=== PATIENT | female | born 1965 | race Caucasian/White ===

== ENCOUNTER 2020-02-15 02:20 | Outpatient (CLI) | payer OTHER, SELFPAY ==
[2020-02-15 17:23] LABS: SARS-CoV-2 RNA PCR Negative
== END 2020-02-15 02:21 | disposition home or self-care (01) ==
LOC: ANHCOVIDDT 02:22
PROVIDERS: Anesthesiology; Visit Provider Obstetrics & Gynecology Gynecology
DX: Z01.812 Encounter for preprocedural laboratory examination (principal); Z20.822 Contact with and (suspected) exposure to COVID-19
CPT/HCPCS: 80048; 93005; C9803; U0003

== ENCOUNTER 2020-02-15 07:44 | Outpatient (CLI) | payer OTHER, SELFPAY ==
--- NOTE | 2020-02-15 07:46 | ECG_ITS ---
Measurements Intervals [place] Rate: 62 P: 56 AR: 170 QRS: 44 QRSD: 89 T: 50 QT: 402 QTc: 408 Interpretive Statements SINUS RHYTHM BASELINE ARTIFACT- V5 NORMAL ECG Electronically Signed On 02-15-2020 8:01:47 MEDICAL OPERATIONS SUPERVISOR by Flex Melo D.O.
[2020-02-15 08:36] LABS: Anion Gap 8 mmol/L (8-16); Blood Urea Nitrogen 21 mg/dL (7-17); Calcium 9.2 mg/dL (8.4-10.2); Carbon Dioxide 29 mmol/L (22-30); Chloride 101 mmol/L (98-107); Estimated Glomerular Filt Rate > 60; Glucose 102 mg/dL (65-105); Potassium 4.2 mmol/L (3.4-5.0); Sodium 138 mmol/L (137-145)
== END 2020-02-15 07:45 | disposition home or self-care (01) ==
LOC: ANHSURGERY 07:46
PROVIDERS: Anesthesiology; PCP Family Medicine; Visit Provider Obstetrics & Gynecology Gynecology
DX: Z01.818 Encounter for other preprocedural examination (principal); E11.9 Type 2 diabetes mellitus without complications
CPT/HCPCS: 36415; 80048; 93005

== ENCOUNTER 2020-02-18 01:40 | Day surgery (SDC) | payer OTHER, SELFPAY ==
[2020-02-13 13:54] VITALS: BMI 26.5
[2020-02-18 06:01] VITALS: BP 121/77; PULSE 82; RESP 14; TEMP 36.7; O2SAT 100
[2020-02-18] MEDS: LACTATED RINGERS 1,000 ML 30 ML IV CONT (06:38)
[2020-02-18 06:44] LABS: Glucose Point of Care 111 (65-105)
--- NOTE | 2020-02-18 07:00 | WPDANESEPPF ---
Anes - Initial Pre Proc Eval Procedure: Operation Date: 02/18/20 08:30 Proposed Procedures p Hysteroscopy Dilation and Curettage - Garima Sal MD Date/Time: 02/18/20 07:00 Surgeon: Garima Sal MD Pre Op Diagnosis: Post Menopausal Bleeding Patient Data Age: 54 Gender: F Height: 5 ft 3 in Weight: 64 kg Last Vital Signs Temp 98.1 F 02/18/20 06:01 Pulse 82 02/18/20 06:01 Resp 14 02/18/20 06:01 BP 121/77 02/18/20 06:01 Pulse Ox 100 02/18/20 06:01 Allergies Allergy/AdvReac Type Severity Reaction Status Date / Time hydrocodone Allergy Intermediate Itching Verified 02/18/20 06:16 methocarbamol [From Robaxin] Allergy Intermediate Itching Verified 02/18/20 06:16 codeine AdvReac Mild Headache Verified 02/18/20 06:26 morphine AdvReac Mild Headache Verified 02/18/20 06:26 Home Medications Medication Instructions Recorded Confirmed Type carbidopa-levodopa 1 tablet PO DAILY 02/13/20 02/18/20 History fenofibrate 160 mg PO DAILY 02/13/20 02/18/20 History folic acid 1 mg PO DAILY 02/13/20 02/18/20 History gabapentin 600 mg PO BID 02/13/20 02/18/20 History levothyroxine [Synthroid] 100 mcg PO DAILY 02/13/20 02/18/20 History lorazepam 1 mg PO BID 02/13/20 02/18/20 History methotrexate sodium [Methotrexate 22.5 mg PO WEEKLY 02/13/20 02/18/20 History (Anti-Rheumatic)] nabumetone 500 mg PO BID 02/13/20 02/18/20 History propranolol 5 mg PO DAILY 02/13/20 02/18/20 History ropinirole 1 mg PO HS 02/13/20 02/18/20 History tramadol 50 mg PO BID 02/13/20 02/18/20 History Laboratory Tests 02/18/20 06:41 POC Capillary Glucose 111 mg/dl H mg/dl (65-105) Patient hx anesthesia problems: none Family hx anesthesia problems: none PMFSH Past Medical History Medical History (Updated 02/18/20 @ 07:00 by Demarco Lowry MD) Diabetes Hypothyroid Restless leg syndrome Social History Social History Smoking packs per day: 0.5 Smoking cigarettes per day: 10.0 Years smoked: 1 Smoking pack-years: 0.50 Smoking status: Current every day smoker Tobacco type: cigarettes Second hand tobacco smoke exposure: Yes Additional smoking assessment comments: NO IDEA HOW LONG SHE SMOKED OFF/ON PRIOR TO 1996, QUIT 1996, STARTED 04/2019 Drinks per week: 1 Substance use: never Living arrangements: with family Spiritual care concerns: No Anes - Eval Final PreProcedure Day of Procedure 02/18/20 07:00 Patient weight: normal Heart: regular rate and rhythm Lungs: clear to auscultation Airway: Mallampati scale class II Neurological: alert and oriented Last oral intake: >/= 8 hours ASA classification: III Emergent: no Anesthetic plan: proceed Anesthesia type and monitoring: general GIVS and standard monitoring Informed Consent: The patient's anesthetic plan and its attendant risks and benefits were discussed with the patient/family/POA. Questions were solicited and answers provided to the satisfaction of the patient/family/POA.
--- NOTE | 2020-02-18 07:32 | PM.HPGS ---
History of Present Illness History of Present Illness Consent: Risks, benefits, and alternatives have been discussed and questions answered. Patient agrees to proceed with procedure. Chief complaint: Post Menopausal Bleeding Narrative: Dian Masters is a 54 year old female with about 4 days of postmenopausal bleeding. Onset with sex and bled heavy x 24 hours with clots then about 1-2 pads per day. No other complaints. Pelvic u/s with mild thickening of endometrium otherwise normal. Recommend further work up with D&C and hysteroscopy. Patient agrees to plan. Risks of infection, bleeding, and perforation discussed. Also, reviewed possible pathology. [facility] Past Medical History Medical History (Updated 02/18/20 @ 07:39 by Garima Sal MD) Diabetes Hypothyroid IBS (irritable bowel syndrome) Interstitial cystitis Migraine Restless leg syndrome Rheumatoid arthritis Surgical History Surgical History (Updated 02/18/20 @ 07:38 by Garima Sal MD) S/P x 2 S/P D&C (status post dilation and curettage) due to SAb S/P laparoscopic cholecystectomy S/P laparoscopy Social History Social History Smoking packs per day: 0.5 Smoking cigarettes per day: 10.0 Years smoked: 1 Smoking pack-years: 0.50 Smoking status: Current every day smoker Tobacco type: cigarettes Second hand tobacco smoke exposure: Yes Additional smoking assessment comments: NO IDEA HOW LONG SHE SMOKED OFF/ON PRIOR TO 1996, QUIT 1996, STARTED 04/2019 Drinks per week: 1 Substance use: never Living arrangements: with family Spiritual care concerns: No Meds Home Medications and Allergies Home Medications Medication Instructions Recorded Confirmed Type carbidopa-levodopa 1 tablet PO DAILY 02/13/20 02/18/20 History fenofibrate 160 mg PO DAILY 02/13/20 02/18/20 History folic acid 1 mg PO DAILY 02/13/20 02/18/20 History gabapentin 600 mg PO BID 02/13/20 02/18/20 History levothyroxine [Synthroid] 100 mcg PO DAILY 02/13/20 02/18/20 History lorazepam 1 mg PO BID 02/13/20 02/18/20 History methotrexate sodium [Methotrexate 22.5 mg PO WEEKLY 02/13/20 02/18/20 History (Anti-Rheumatic)] nabumetone 500 mg PO BID 02/13/20 02/18/20 History propranolol 5 mg PO DAILY 02/13/20 02/18/20 History ropinirole 1 mg PO HS 02/13/20 02/18/20 History tramadol 50 mg PO BID 02/13/20 02/18/20 History Allergies Allergy/AdvReac Type Severity Reaction Status Date / Time hydrocodone Allergy Intermediate Itching Verified 02/18/20 06:16 methocarbamol [From Robaxin] Allergy Intermediate Itching Verified 02/18/20 06:16 codeine AdvReac Mild Headache Verified 02/18/20 06:26 morphine AdvReac Mild Headache Verified 02/18/20 06:26 Vital Signs Vital Signs - 24 hr 02/18/20 06:01 Temperature 98.1 F Pulse Rate 82 Respiratory Rate 14 Blood Pressure 121/77 Pulse Oximetry 100 Exam Const: General: healthy appearing and alert Orientation/consciousness: patient oriented x3 Resp: Effort & Inspection: normal respiratory effort Auscultation: clear to auscultation bilaterally Cardio: Rate: regular rate Rhythm: regular rhythm GI: GI Palp: Yes Soft to palpation, No Tenderness to palpation present (GI) and No Palpable mass present : External Female Exam: normal external appearance Speculum Exam - Vagina: normal vaginal discharge, vagina atrophic and other (old blood present) Speculum Exam - Cervix: normal appearance of the cervix Bimanual exam- vagina & uterus: uterine size normal and consistency normal Bimanual Exam- Adnexa, other: normal adnexae and No adnexal tenderness Neuro: General: patient oriented x3 Assessment and Plan Assessment and plan (1) Post-menopausal bleeding: Code(s): N95.0 - Postmenopausal bleeding Status: Acute Assessment and Plan: plan to proceed with hysteroscopy and D&C
--- NOTE | 2020-02-18 07:48 | WPDHPUPDATE1 ---
History and Physical Update Update Date/Time: 02/18/20 07:48 History and Physical has been reviewed, including an updated exam of the patient. There are NO changes in the patient's condition. Risks, benefits, and alternatives have been discussed and questions answered. Patient agrees to proceed with procedure.
--- NOTE | 2020-02-18 08:06 | SUR.OPER ---
HYSTEROSCOPY IRRIGATION 500ML IN AND 400ML OUT
[2020-02-18 08:12] VITALS: BP 99/48; PULSE 72; RESP 16; O2SAT 98
--- NOTE | 2020-02-18 08:12 | PM.PROC ---
Procedure Note - Detailed Date of procedure: 02/18/20 Pre-op diagnosis: Post Menopausal Bleeding Post-op diagnosis: same Procedure performed: D&C hysteroscopy Description of procedure: The patient was taken to the operating room and placed in the dorsal lithotomy position under anesthesia. She was prepped and draped in the usual sterile fashion. [place] speculum was placed in the vagina and the cervix is noted to be flush with the vagina. Vagina and cervix are very atrophic. The cervix is grasped on the anterior lip with a tenaculum and injected with 1% lidocaine. The sound is attempted to be placed but stenosis is noted at approximately 1-1/2cm. The small dilator is used and able to enter the cavity. The cervix was then serially dilated with [place] size. Diagnostic hysteroscope was placed with the above-stated findings. The threads are noted in the midline and within what appears to be scar tissue at the fundus. The grasper is placed through the hysteroscope and upon attempting to grasp the threads they are displaced. The scope and grasper is removed together. No threads are noted the hysteroscope was replaced and thorough inspection of the cavity reveals no threads. It is suspected that they washed out with the fluid. The remainder of the endometrium appears grossly atrophic and tubal ostia appeared normal. The hysteroscope was removed and the medium sharp curette is used to sharply curette the endometrium. Minimal material is obtained consistent with the severe atrophy noted. All instruments are removed and the patient awakened from anesthesia. Sponge, instrument, and needle counts are correct per the OR staff. Anesthesia: MAC and local Surgeon: Garima Sal MD Estimated blood loss (mL): 5 Drains: No Packing: No Pathology: yes (endometrial curettings) Complications: No immediate complications Condition: stable Disposition: PACU Findings: cerix flush with vagina; severe atrophy; uterus sound to 6 cm; blue thread appearing in midline within scar tissue at fundus; normal appearing enodmetium with atrophic appearance
[2020-02-18] MEDS: fentaNYL CITRATE INJ (*CRX) 100 MCG/2 ML VIAL 25 MCG IV PUSH ×4 (08:18→08:35)
[2020-02-18 08:26] LABS: Glucose Point of Care 84 (65-105)
[2020-02-18 08:40] VITALS: BP 106/63; PULSE 87; RESP 16; O2SAT 95
[2020-02-18 09:05] VITALS: BP 99/85; PULSE 74; RESP 16; O2SAT 99
== END 2020-02-18 09:22 | disposition home or self-care (01) ==
PROVIDERS: PCP Family Medicine; Visit Provider Obstetrics & Gynecology Gynecology
PROC: 0U5B8ZZ Destruction of Endometrium, Via Natural or Artificial Opening Endoscopic (ICD-10-PCS; CPT 58563; principal; 2020-02-18 08:30)
DX: N95.0 Postmenopausal bleeding (principal); N85.8 Other specified noninflammatory disorders of uterus; E11.9 Type 2 diabetes mellitus without complications; E03.9 Hypothyroidism, unspecified; G25.81 Restless legs syndrome; F17.210 Nicotine dependence, cigarettes, uncomplicated
CPT/HCPCS: 58558; 88305; A9270; J0131; J1100; J1200; J2250; J2405; J2704; J2710; J3010; J7030; J7120